=== PATIENT | male | born 1940 | race African-American/Black ===

== ENCOUNTER 2019-08-12 03:27 | Emergency (ER) | payer OTHER, BC ==
[~2019-08-12] VITALS: Ht 185.4 cm; Wt 119.3 kg
[~2019-08-12 03:27] MED LIST: ACETAMINOPHEN SUPP; ACETAMINOPHEN325 M1 PO; ACTOS15 MG PO; ADVAIR HFA 230M12 GM INH; ALEVE220 M1 PO; AMARYL2 MG PO; AMBIEN 5 MG TABL5 M1 PO; ARTIFICIAL TEAR15 M1 OP; ASPIRIN325 PO; ATIVAN1 MG PO; BETIMOL10 ML; BUMETANIDE 0.50.5 M1 PO; BUMETANIDE0.25 MG/1 PO; CARISOPRODOL350 MG PO; CENTRUM SILVER1 EAC4 PO; CEPACOL SORE T1 EAC8 PO; CINNAMON500 MG PO; COLACE 100 MG100 MG PO; COZAAR100 MG PO; EFFIENT10 MG PO; ENOXAPARIN30 MG/0.1 SUBQ; ENOXAPARIN40 MG/0.4 SQ; FISH OIL 1,0001 EAC5 PO; FLEET ENEMA118 ML RE; FLOMAX0.4 MG PO; FLONASE 0.05%50 MCG NASAL; HUMULINR100; HYDROCODON-ACE1 EACH PO; HYDROCODONE-AP1 EAC6 PO; HYTRIN 2MG CAPSU2 M1 PO; HYTRIN PO; IRON325 PO; LIDODERM TOP; LIPITOR10 MG PO; LOPRESSOR100 M1 PO; MAALOX525 MG/15 PO; MAG-AL PLUS SUS30 ML PO; METAXALONE800 MG PO; MIRALAX17 GM PO; MOM PO; MULTIVITAMINS PO; MYLANTA GAS MA125 MG; NEURONTIN 300300 M1 PO; NEURONTIN600 MG PO; NEURX-TF PO; NICOTINE TRANSD21 M1 TOP; NITROGLYCERIN0.4 MG SL; NORFLEX100 MG PO; NOVOLOG100 UNIT/1 SUBQ; OCEAN45 ML NS; OXYCODON-ACETA1 EAC1 PO; PIOGLITAZONE15 MG PO; PROAIR HFA8.5 GM INH; ROBITUSSIN100 MG/53 PO; SENOKOT-S1 TA1 PO; SORE THROAT LO1 EAC2 PO; TIMOPTIC 0.25%1 EACH OPHTHALMIC; TOPROL XL50 MG PO; TUMS CHEWA500 MG/11 PO; TUMS PO; TYLENOL325 MG PO; VASELINE TOP; VENTOLIN HFA 1818 GM INH; VITAMIN D1000 UNI1 PO; VITAMINC500 PO; WELLBUTRIN SR150 MG PO; XALATAN2.5 ML OP; ZOCOR 20 MG TAB20 M1 PO; [UNRECOGNIZED DRUG - OTHER] MM
[2019-08-12 03:35] VITALS: BP 160/73
== END 2019-08-12 04:26 | disposition home or self-care (01) ==
LOC: ER 03:27
DX: R04.0 Epistaxis (principal); I10 Essential (primary) hypertension; E78.5 Hyperlipidemia, unspecified; E11.40 Type 2 diabetes mellitus with diabetic neuropathy, unspecified; F32.9 Major depressive disorder, single episode, unspecified; F41.9 Anxiety disorder, unspecified; Z96.653 Presence of artificial knee joint, bilateral; M19.90 Unspecified osteoarthritis, unspecified site; Z95.2 Presence of prosthetic heart valve; Z79.4 Long term (current) use of insulin; Z87.891 Personal history of nicotine dependence

== ENCOUNTER 2020-05-16 12:08 | Inpatient (IN) | payer OTHER, BC ==
[~2020-05-16] VITALS: Ht 182.9 cm; Wt 137.6 kg
[~2020-05-16 12:08] MED LIST changes: -AMARYL4 MG PO; -BAYER CHEWABLE81 MG PO; -CLARITIN10 MG PO; -NITRO-DUR 0.1M0.1 M1 TRANSDERM; -NORCO 7.5-3251 EACH PO; -NORVASC5 M1 PO; -OMEPRAZOLE 20 M20 M1 PO; -PATADAY5 ML OPHTHALMIC; -PLAVIX 75 MG TA75 M1 PO; -ZANAFLEX4 M1 PO; -ZESTRIL10 MG PO; -ZOCOR20 MG PO
[2020-05-16 12:11] VITALS: BP 121/60
[2020-05-16 14:56] LABS: ABSOLUTE NEUTROPHILS 6.3 thou/uL (1.4-8.2); BASOPHILS 0.4 % (0.0-2.0); EOSINOPHILS 1.4 % (0.0-3.0); HEMATOCRIT 33.9 % (42.0-52.0); HEMOGLOBIN 11.3 gm/dL (14.0-18.0); LYMPHOCYTES 14.6 % (24.0-44.0); MCH 29.4 pg (26.0-34.0); MCHC 33.4 g/dL (28.0-37.0); MCV 87.9 fL (80.0-100.0); MONOCYTES 11.5 % (1.0-8.0); PLATELET COUNT 216 thou/uL (150-400); POLYS 72.1 % (36.0-66.0); RBC 3.85 mil/uL (4.50-6.00); RDW 12.9 % (10.5-14.5); WBC 8.7 thou/uL (4.0-11.0)
[2020-05-16 15:04] LABS: CALCIUM 9.1 mg/dL (8.5-10.1); CREATININE 2.2 mg/dL (0.7-1.3); POTASSIUM 4.6 mmol/L (3.5-5.1)
[2020-05-16 15:10] LABS: ALBUMIN 3.6 g/dL (3.4-5.0); TOTAL BILIRUBIN 0.4 mg/dL (0.2-1.0); TOTAL PROTEIN 7.7 g/dL (6.4-8.2)
[2020-05-16 15:25] VITALS: BP 124/62
[2020-05-16] MEDS ORDERED: HYTRIN 2MG CAPSU2 M1 PO (15:41)
[2020-05-16] MEDS ORDERED: AMARYL4 MG PO (15:44)
[2020-05-16] MEDS ORDERED: ZOCOR20 MG PO (15:45)
[2020-05-16] MEDS ORDERED: ZESTRIL10 MG PO (15:46)
[2020-05-16] MEDS ORDERED: NORVASC5 M1 PO (15:48)
[2020-05-16] MEDS ORDERED: PATADAY5 ML OPHTHALMIC (15:49)
[2020-05-16] MEDS ORDERED: OMEPRAZOLE 20 M20 M1 PO (15:51)
[2020-05-16] MEDS ORDERED: ZANAFLEX4 M1 PO (15:52)
[2020-05-16 16:39] VITALS: BP 119/58
[2020-05-16 16:48] VITALS: BP 91/70
[2020-05-16 19:54] VITALS: BP 143/67
--- NOTE | 2020-05-16 20:21 | NUR ---
Admitted from ER due to non healing wound at L foot, transferred to bed safely. A+Ox4. On room air. Vital signs stable. On carb controlled diet- tolerating well; no nausea, no vomiting and no abdominal pain. Admission history, assessment and education done; forms signed. Continent of bowel and bladder- able to use urinal and go to the toilet with standby assist, gait belt and walker. Falls bundle in place. With SL at AC- on IV antibiotics. With consult to Dr Salinas and Dr Martel- US called in consult; pt seen by Dr Salinas this afternoon- to do wound cultures- speciment obtained and sent; Collette(Wound MANAGER BUDGET)- to do wet to dry dressing, obtain cultures and will see pt tomorrow. Pt for MRI- checklist completed and faxed. Wound photo taken and dressing changed- charted. Medication reconcilation done at ER, Dr Morris informed to review medications to continue.
--- NOTE | 2020-05-17 03:39 | NUR ---
ASSUMED CARE OF PT AT 1900HRS. PT AOX4 AND LETS NEEDS BE KNOWN. FALL PRECAUTION IN PLACE. PT REPORTED SOME PAIN BUT DID NOT REQUEST PAIN MEDS. ABX TREATMENT CONTINUED. PT WAS ABLE TO GET COMFORTABLE AND SLEEP PART OF THE SHIFT. VSS AND NO S/S OF ACUTE DISTRESS. EILL CONTINUE TO MONITOR.
[2020-05-17 03:46] VITALS: BP 134/62
[2020-05-17 06:13] LABS: HEMATOCRIT 31.8 % (42.0-52.0); HEMOGLOBIN 10.6 gm/dL (14.0-18.0); MCH 29.7 pg (26.0-34.0); MCHC 33.4 g/dL (28.0-37.0); MCV 88.9 fL (80.0-100.0); PLATELET COUNT 195 thou/uL (150-400); RBC 3.58 mil/uL (4.50-6.00); RDW 12.9 % (10.5-14.5); WBC 8.3 thou/uL (4.0-11.0)
[2020-05-17 06:30] LABS: CALCIUM 8.7 mg/dL (8.5-10.1); CREATININE 2.4 mg/dL (0.7-1.3); POTASSIUM 4.9 mmol/L (3.5-5.1)
[2020-05-17 07:31] LABS: ABSOLUTE NEUTROPHILS 5.3 thou/uL (1.4-8.2); PLATELET ESTIMATE NORMAL
[2020-05-17 09:01] VITALS: BP 145/71
[2020-05-17 11:02] LABS: URINE POTASSIUM-RANDOM* 64.6 mmol/L
--- NOTE | 2020-05-17 13:22 | NUR ---
PT ADMITTED RELATED TO NON-HEALING FOOT WOUND. CM REVIEWED CHART AND SPOKE WITH CARE TEAM. CM CALLED AND SPOKE WITH PT AT BEDSIDE THIS DAY. PT APPEARED TO BE A&O X4. CM ROLE INTRODUCED. PT INDICATED HE LIVES ALONE IN A TOWNHOUSE WITH A STAIR LIFT. PT INDICATED HE HAS A FWW AND A 4WW FOR HOME USE. PT INDICATED HE HAD BEEN INDEPENDENT WITH ADLS COLORING CHECKER. PT INDICATED HE HAD BEEN SENT IN BY ROLLER MAN DR. ALEXIS AT [address]. PT INDICATED HE HAD HH A WHILE AGO BUT COULDN'T RECALL PROVIDER. PT INDICATED HE PLANS TO RETURN HOME ONCE MEDICALLY STABLE. CM TO FOLLOW INDICATED WITH DC PLANNING.
--- NOTE | 2020-05-17 15:37 | NUR ---
Assumed pt care at 7am.Pt in bed resting without c/o.Assessment completed. Dr Hughes and Grady here,order noted.Pt tolerated meds and diet.Mri of left foot postponed till tomorrow am. Pain shot given as ordered later this afternoon with relief.Will continue to monitor.
[2020-05-17 18:38] VITALS: BP 139/73
[2020-05-17 20:08] VITALS: BP 100/32
--- NOTE | 2020-05-18 04:41 | NUR ---
ASSUMED CARE OF PT AT 1900HRS. PT AOX4 AND LETS NEEDS BE KNOWN. FALL PRECAUTION IN PLACE. PT REPORTED SOME PAIN AND WAS TREATED WITH PRN PAIN MEDS. PT DENIED NAUSEA OR SOA. ASSESSMENT CHARTED. PT WAS ABLE TO GET COMFORTABLE AND SLEEP PART OF THE SHIFT. VSS AND NO S/S OF ACUTE DISTRES. WILL CONTINUE TO MONITOR.
[2020-05-18 05:47] VITALS: BP 129/56
[2020-05-18 08:40] LABS: ALBUMIN 3.1 g/dL (3.4-5.0); CALCIUM 8.4 mg/dL (8.5-10.1); CREATININE 2.6 mg/dL (0.7-1.3); PHOSPHORUS 3.9 mg/dL (2.5-4.9); POTASSIUM 4.7 mmol/L (3.5-5.1)
[2020-05-18 11:49] LABS: URINE BILIRUBIN NEGATIVE (Negative); URINE BLOOD NEGATIVE (Negative); URINE CLARITY CLEAR; URINE COLOR YELLOW; URINE GLUCOSE-RANDOM* NEGATIVE (Negative); URINE KETONES NEGATIVE (Negative); URINE LEUKOCYTES NEGATIVE (Negative); URINE NITRITE NEGATIVE (Negative); URINE PROTEIN (DIPSTICK) NEGATIVE (Negative); URINE UROBILINOGEN 0.2 E.U./dl (0.2-1.0)
[2020-05-18 11:50] LABS: URINE CREATININE-RANDOM* 182.7 mg/dL
--- NOTE | 2020-05-18 11:57 | NUR ---
CARE TEAM INDICATED THAT THEY AREN'T PROCEDING WITH ANGIOGRAM RELATED TO CONCERS FOR ESRD. WC HAD SPOKEN WITH PT REGARDING POSSIBLE AMPUTATION. IT IS ALSO ANTICIPATED THAT PT MAY REQUIRE PROLONGED IV ABX. CM FOLLOWING REGARDING DISHCARGE PLANNING.
--- NOTE | 2020-05-18 13:21 | NUR ---
Received awake on bed. Due medications given as prescribed, able to swallow meds w/o difficulty. On room air. Vital signs stable. A+Ox4. On carb controlled diet- tolerating well; no nausea, no vomiting and no abdominal pain noted. On blood sugar monitoring- taken and recorded accordingly, with sliding scale insulin ordered. Continent of bowel and bladder- able to use the urinal and bedside commode. With SL at R AC, NS at 80cc/hr, infusing well at L FA; on IV antibiotics. MRI of L foot done this am, brought down via wheelchair; transferred to bed safely. Assisted in ADLs. Falls bundle in place. With wound at L foot- dressing C/D/I- photo to be taken, dressing to be changed. Pt seen by Dr Crum this AM, US renal ordered- a/w US staff. Bladder scan done- 102mls, to do straight cath if retaining more than 400mls. Pt seen by wound team as well- possibility of having an amputation- pt very tearful, requested to talk to spiritual care- US called and left message- talked to patient. Complaining of constipation, due laxatives given as prescribed. A/w urine sample for urinalysis-specimen obtained and sent to lab. To continue monitoring patient.
[2020-05-18 15:10] VITALS: BP 123/69
[2020-05-18 19:40] VITALS: BP 142/60
[2020-05-19 03:10] VITALS: BP 119/60
--- NOTE | 2020-05-19 03:16 | NUR ---
PATIENT HAS A LEFT FOOT DRESSING C/D/I. PATIENT HAD 4 BOWEL MOVEMENT THIS SHIFT. PATIENT DENIED PAIN OR DISCOMFORT. FALL PRECAUTION INPLACE. PATIENT IN BED ASLEEP AT THIS TIME BREATHING REGULAR AND UNLABOURED.
[2020-05-19 06:05] LABS: ALBUMIN 2.8 g/dL (3.4-5.0); CALCIUM 8.1 mg/dL (8.5-10.1); CREATININE 2.6 mg/dL (0.7-1.3); PHOSPHORUS 3.4 mg/dL (2.5-4.9); POTASSIUM 4.7 mmol/L (3.5-5.1)
[2020-05-19 07:39] VITALS: BP 137/57
--- NOTE | 2020-05-19 14:48 | NUR ---
CARE TEAM INDIATED THAT THEY WERE GOING TO CONSULT ORTHO TO DISCUSS POSSIBLE AMPUTATION. CM TO FOLLOW INDICATED WITH DC PLANNING.
[2020-05-19 16:05] VITALS: BP 123/48
--- NOTE | 2020-05-19 18:30 | NUR ---
PT IS AOX4, VSS, WOUND CARE COMPLETED BY WC TEAM. PT PAIN CONTROLLED WITH ORAL ANALGESIC. CALL APPROPRIATELY, IV PATENT WITH ANTIBIOTIC THERAPY. WILL CONTINUE TO MONITOR.
[2020-05-19 19:45] VITALS: BP 134/51
--- NOTE | 2020-05-20 02:12 | NUR ---
PATIENT LEFT FOOT DRESSING IS C/D/I.PATIENT HAD A BOWEL MOVEMENT X1 THIS SHIFT. PATIENT DENIED PAIN OR DISCOMFORT. FALL PRECAUTION IN PLACE CALL LIGHT AND PERSONAL ITEM WITHIN REACH.PATIENT IN BED ASLEEP AT THIS TIME BREATHING REGULAR AND UNLABOURED.
[2020-05-20 05:47] LABS: ALBUMIN 2.7 g/dL (3.4-5.0); CREATININE 2.3 mg/dL (0.7-1.3); PHOSPHORUS 3.5 mg/dL (2.5-4.9); POTASSIUM 4.7 mmol/L (3.5-5.1)
[2020-05-20 05:56] VITALS: BP 129/96
--- NOTE | 2020-05-20 13:39 | NUR ---
CARE TEAM INDICATED THAT DC IS NOT ANTICIPATED OVER THE WEEKEND. WAITING FOR RENAL FUNCTION TO IMPROVE PRIOR TO GOING FOR ARTERIOGRAM PRIOR TO POSSIBLE SURGICAL INTERVETNION. CM TO FOLLOW INDICATED WITH DC PLANNING.
--- NOTE | 2020-05-20 15:17 | HC ---
[facility] [place] [address] CONSULTATION Name: ELIEZER ORDAZ Room #: 456-P ADM IN M.R.#: [id number] Admission: 05/16/20 Attend Phys: Mago Morris MD Discharge: Date of : 41 Report #: [id number] THIS REPORT FOR: cc: Jhonathan Nelson,Rene Kurtz MD ~ CC: Mago Nelson REASON FOR CONSULTATION: Elevated creatinine. REASON FOR PRESENTATION: Wounds on his lower extremities. HISTORY OF PRESENT ILLNESS: This is a 79-year-old with past history of diabetes mellitus, hypertension and chronic kidney disease. He sees Dr. Rushing, Nephrology. He has been seeing his neuro urologist who referred him to the wound clinic because of worsening nonhealing ulcers. The patient will be ruled out for osteomyelitis. He reported that his pain, wound had been progressively worsening. He had these issues with his lower extremity for some years now. On presentation, the patient's creatinine was elevated at 2.2 and had risen to 2.6. The patient is known to have chronic kidney disease and urinary retention in the past. He was evaluated by one of my associates' back in 2015 when his creatinine value was used to be in the 2.0. The patient's chronic kidney disease was attributed to long-standing diabetes mellitus, hypertension and nonsteroidal anti-inflammatory medications. Currently, he has no active symptoms to report to me. PAST MEDICAL HISTORY: 1. Diabetes mellitus. 2. Hypertension. 3. Paroxysmal supraventricular tachycardia. 4. Peripheral vascular disease. 5. Chronic kidney disease with a baseline creatinine of around 2.0. 6. Left total knee replacement. 7. Lumbar surgery. 8. Peripheral neuropathy. 9. Hyperlipidemia. 10. Coronary artery disease. MEDICATIONS: 1. Albuterol. 2. Amlodipine. 3. Aspirin. 4. Gabapentin. 5. Lisinopril. 6. Glimepiride. 7. Zanaflex. [address] [address] CONSULTATION Name: ELIEZER ORDAZ Room #: 456-P [facility] IN ..#: [id number] Admission: 05/16/20 Attend Phys: Mago Morris MD Discharge: Date of : 41 Report #: [id number] 8. Omeprazole. FAMILY HISTORY: Significant for hypertension. SOCIAL HISTORY: He denies drug or alcohol abuse. ALLERGIES: None. REVIEW OF SYSTEMS: GENERAL: Significant for occasional weakness. CARDIOVASCULAR: No chest pain or palpitation. PULMONARY: No cough or hemoptysis. GASTROINTESTINAL: No nausea or vomiting. GENITOURINARY: No frequency, no urgency. Denies difficulty emptying his bladder. MUSCULOSKELETAL: As per the history of present illness. PHYSICAL EXAMINATION: VITAL SIGNS: Blood pressure is 129/56, temperature is 37.1. HEAD AND NECK: No jugular venous distention. CHEST: No crackles. CARDIOVASCULAR: No rub. ABDOMEN: Soft, nontender. EXTREMITIES: Lower extremities, no edema. Dressing applied over his left foot ulcer. ASSESSMENT AND PLAN: 1. Chronic kidney disease. 2. Peripheral vascular disease. 3. Diabetes mellitus. 4. Hypertension. 5. Ongoing lower extremities wound. 6. The patient has chronic kidney disease with recent worsening, which is not explainable; however, he did have some issues with urinary retention in the past. I will obtain an acute kidney injury workup appropriately on the patient. 7. With his worsening creatinine, I would not recommend to proceed with the angiogram. 8. Hold all diuretics at this point. 9. Hold angiotensin converting enzyme inhibitor. 10. ID is following regarding his potential osteomyelitis. 11. Risk of contrast-induced nephropathy was discussed with the patient and he wants me to discuss issues with his brother. 12. Daily electrolytes. [address] [address] CONSULTATION Name: ELIEZER ORDAZ Room #: 456-P [facility] IN M.R.#: [id number] Admission: 05/16/20 Attend Phys: Mago Morris MD Discharge: Date of : 41 Report #: [id number] 13. Watch urine output. 14. Continue with the IV fluid for now. <ELECTRONICALLY SIGNED> By: Rene Loera MD 05/20/20 1517 [id number] Rene Loera MD /nt
[2020-05-20 18:50] VITALS: BP 123/89
--- NOTE | 2020-05-20 20:11 | NUR ---
Assumed pt care this am, VS stable. several bm done through out he day. Fall precautions in place, uses the urinal and the commode. Bladder scan done at 8:35 am at 100 cc then 2:35 pm at 115 cc. Pt has been voiding. POC followed with no signs or verbalizations of distress noted. Endorsed to the night nurse.
[2020-05-21 04:10] VITALS: BP 145/73
--- NOTE | 2020-05-21 05:09 | NUR ---
Pt. rested quietly at short intervals during the night when checked on during frequent rounds. He c/o indigestion and sinus congestion. Arlet READ called and notified earlier during the shift (see new orders). He offers no c/o pain. Dressing to left foot is dry and intact.
[2020-05-21 08:06] VITALS: BP 137/46
[2020-05-21 08:13] LABS: ALBUMIN 2.7 g/dL (3.4-5.0); CALCIUM 8.7 mg/dL (8.5-10.1); CREATININE 2.1 mg/dL (0.7-1.3); PHOSPHORUS 3.2 mg/dL (2.5-4.9); POTASSIUM 4.6 mmol/L (3.5-5.1)
[2020-05-21 15:26] VITALS: BP 139/88
[2020-05-21 20:27] VITALS: BP 144/64
--- NOTE | 2020-05-21 20:42 | NUR ---
ASSUMED PT CARE AT 0700. PT A X O X 4. WOUND DRESSING CHANGED. PATIENT HAD CONCERNS THAT HIS BLOOD SUGAR MEDICATION AND BP MEDICATION TAKING AT HOME IS NOT BEING GIVEN NOW. TOLD PT IT IS ONHOLD, BUT PT SAID HE NEED TO TALK TO DOCTOR REGARDING THAT. WAS PAGED AND AIREMAILED, DIDNT GET BACK DURING THE SHIFT. PT WILL CALL FOR HELP. SHIFT REPORT GIVEN TO LOCK OPERATOR.
--- NOTE | 2020-05-22 03:42 | NUR ---
PATIENT ALERT AND ORIENTED X4. UP TO SIDE OF BED USING URINAL WITH YELLOW URINE. VERY FUSSY AT SHIFT CHANGE AND DURING STAIN DIPPER DUE TO HIS MEDICATIONS. BS MONITORED PER ORDER. DRESSING TO LEFT FOOT DRY AND INTACT. IVF INFUSING W/O COMPLICATION. SLEEPING OFF AND ON DURING THE NIGHT. DENIES PAIN.
[2020-05-22 05:02] VITALS: BP 142/60
[2020-05-22 06:13] LABS: ALBUMIN 2.7 g/dL (3.4-5.0); CALCIUM 9.1 mg/dL (8.5-10.1); CREATININE 1.9 mg/dL (0.7-1.3); PHOSPHORUS 3.7 mg/dL (2.5-4.9)
[2020-05-22 06:17] LABS: POTASSIUM 5.5 mmol/L (3.5-5.1)
[2020-05-22 07:30] VITALS: BP 143/56
[2020-05-22 15:25] VITALS: BP 158/75
--- NOTE | 2020-05-22 16:49 | NUR ---
PT AOX4, VSS, R AC IV IS PATENT WITH FLUIDS RUNNING. PT IS TOLERATING DIET, USES URINAL AND BSC. LEFT FOOT DRESSING IS CDI, ELEVATED ON PILLOWS. PT RECEIVED KAYEXALATE X1 FOR ELEVATED POTASSIUM LEVEL 5.5. BS WERE MONITORED, PT CALLS APPROP. WILL BE NPO AT MIDNIGHT FOR PROCEDURE TOMORROW. NO DISTRESS NOTED, WILL CONTINUE TO MONITOR.
[2020-05-22 20:13] VITALS: BP 153/76
[2020-05-23] VITALS (9 sets, daily range): BP systolic 132–153; BP diastolic 53–76
--- NOTE | 2020-05-23 03:37 | NUR ---
ASSUMED CARE OF PT AT 1900HRS. PT AOX4 AND LETS NEEDS BE KNOWN. FALL PRECAUTION IN PLACE. ABX TREATMENT CONTINUED. ASSESSMENT CHARTED. PT PLACED NPO AT OR FOR PROCEDURE IN THE AM. PT WAS ABLE TO GET COMFORTABLE AND SLEEP PART OF THE SHIFT. VSS AND NO S/S OF ACUTE DISTRESS. WILL CONTINUE TO MONITOR.
[2020-05-23 06:30] LABS: ALBUMIN 2.5 g/dL (3.4-5.0); CALCIUM 8.7 mg/dL (8.5-10.1); CREATININE 1.9 mg/dL (0.7-1.3); PHOSPHORUS 3.4 mg/dL (2.5-4.9); POTASSIUM 4.7 mmol/L (3.5-5.1)
--- NOTE | 2020-05-23 08:10 | HC ---
[facility] [place] [address] CONSULTATION Name: ELIEZER ORDAZ Room #: 456-P ADM IN M.R.#: [id number] Admission: 05/16/20 Attend Phys: Mago Morris MD Discharge: Date of : 41 Report #: [id number] THIS REPORT FOR: cc: Jhonathan Nelson,Quang Voss MD ~ CC: Mago Nelson MD DATE OF SERVICE: 05/17/2020 CHIEF COMPLAINT: Diabetic foot ulceration, left foot. HISTORY OF PRESENT ILLNESS: This is a 79-year-old male patient who was referred to me for a diabetic foot ulceration by Dr. Jhonathan Nelson. I saw him yesterday in the clinic. He had significant odor, drainage and necrosis of the lateral aspect of his left foot. It felt that he had significant surrounding cellulitis and viability of his lower extremity was at risk and he is admitted to the hospital. The patient denies problems with his foot in the past. He was seen over the last several weeks by a local court transcriber, some debridement was performed, he was unaware of his vascular status. PAST MEDICAL HISTORY: Positive for a history of ischemic cardiomyopathy, type 2 diabetes mellitus, hypertension, chronic kidney disease stage 3, coronary artery disease, status post stent placement, history of PSVT with ablation, peripheral neuropathy and ischemic cardiomyopathy. He has had previous back surgery. FAMILY HISTORY: Positive for cancer in his father. His mother of a myocardial infarction aged in her 90s. SOCIAL HISTORY: The patient admits to prior tobacco use, quit 3 years ago. No alcohol or drug use. ALLERGIES: None. MEDICATIONS: Include Flomax, iron, Flonase, ProAir, Cepacol, Tylenol, Ventolin, Mag-Al Plus, Colace, gabapentin, bumetanide, glimepiride, simvastatin, lisinopril, amlodipine, olopatadine, omeprazole, Zanaflex, cinnamon bark, bupropion. REVIEW OF SYSTEMS: CONSTITUTIONAL: The patient denies fever, chills or weight loss. NEUROLOGICAL: The patient has peripheral neuropathy. Denies other focal weakness, numbness or tingling. EYES: The patient denies visual changes, redness, or drainage. [address] [address] CONSULTATION Name: SUSHMAYECENIAELÍASKyle Kapoor Room #: 456-P [facility].#: [id number] Admission: 05/16/20 Attend Phys: Mago Morris MD Discharge: Date of : 41 Report #: [id number] ENT: The patient denies earache, nasal drainage, sore throat. CARDIOVASCULAR: The patient denies chest pain, palpitations or diaphoresis. PULMONARY: As described above. GASTROINTESTINAL: The patient denies nausea, vomiting, diarrhea, abdominal pain. ORTHOPEDIC: The patient denies pain, swelling, drainage from his left foot. Other systems in a 14-point review of systems are negative. PHYSICAL EXAMINATION: VITAL SIGNS: Include temperature 98.4, pulse 83, respiratory rate 18, blood pressure 145/71. GENERAL: This is a somewhat chronically ill-appearing male patient who appears to be in no distress. HEENT: Head, normocephalic. Nose and throat clear. NECK: Supple. LUNGS: Clear. ABDOMEN: Soft. Bowel sounds present. EXTREMITIES: Lower extremities demonstrate nonpalpable distal pulses. He has moderate erythema and swelling involving the left foot. He has a necrotic ulceration with odor and drainage at the fifth MTP of the left foot, it is mildly tender to palpation. NEUROLOGIC: The patient is alert and oriented and appropriate. LABORATORY STUDIES: Include white blood cell count of 8.3 with a hemoglobin of 10.6. Sodium 138, potassium 4.7, chloride 107, BUN 11, creatinine 2.3, glucose 125. CRP is elevated at 88.7. Albumin is 2.7. CLINICAL IMPRESSION: 1. Diabetic foot ulcer with significant infection and cellulitis of the left fifth MTP. 2. Osteomyelitis, on plain film x-ray. 3. Peripheral vascular disease. 4. Renal insufficiency. 5. Type 2 diabetes mellitus with hyperglycemia. RECOMMENDATIONS: At this point in time, the patient will be started on intravenous antibiotic therapy. We will check an MRI. He will likely require a ray amputation on the left side. We need to evaluate his vascular status to see if he has adequate vascularity to heal. We will obtain renal consultation. He will need nutritional support to maximize wound healing and glycemic control. I appreciate being asked to see him in consultation. <ELECTRONICALLY SIGNED> By: Quang Martel MD 05/23/20 0810 [id number] Quang Martel MD /nt
--- NOTE | 2020-05-23 12:56 | NUR ---
Assumed patient care at 0715. Vital signs stable, LSCTA, BS x's 4, abdomen is soft and non-tender; he denies pain. Patient has a dressing to his left foot, it is clean and intact. Patient was not given any medications by mouth due to being NPO for procedure. Blood sugar was 231 at 0750; he was given 4 Units of Lispro per sliding dcale. At 1200, blood sugar was 213. Insulin withheld due to NPO status. Patient was taken to procedure at 1205. He is being transferred to CCU, Room 212.
--- NOTE | 2020-05-23 14:36 | NUR ---
PT TO HAVE ANGIOGRAM THIS DAY. CARE TEAM INDIATED THAT PT MAY TRANSFER TO CCU POST PROCEDURE. WC, OTHRO, AND ID FOLLOWING. PHYSICIAN INDICATED PT MAY NEED POST ACUTE CARE STAY UPON DC. CM TO FOLLOW INDICATED WITH DC PLANNING.
--- NOTE | 2020-05-23 21:04 | NUR ---
ASSUMMED PT CARE AT APPROXIMATLEY 1800. PT A&O X4. PT POST CATH PROCEDURE. R GROIN C/D/I. NO HEMATOMA. VITAL SIGNS STABLE. BLOOD SUGAR STABLE. PT COMFORTABLE IN BED. EDUCATED PT ABOUT POC. PT STATED UNDERSTANDING AND DENIED HAVING FURTHER CONCERNS.
[2020-05-24] VITALS: BP 124/64; BP 155/78
[2020-05-24 05:27] VITALS: BP 161/72
[2020-05-24 06:38] LABS: ALBUMIN 2.6 g/dL (3.4-5.0); CALCIUM 8.5 mg/dL (8.5-10.1); CREATININE 1.8 mg/dL (0.7-1.3); PHOSPHORUS 3.9 mg/dL (2.5-4.9); POTASSIUM 4.4 mmol/L (3.5-5.1)
[2020-05-24 07:29] VITALS: BP 146/52
[2020-05-24 11:26] VITALS: BP 159/68
[2020-05-24 15:16] VITALS: BP 164/78
--- NOTE | 2020-05-24 17:16 | NUR ---
ASSUMED CARE PT SHIFT CHANGE. ASSESSMENT CHARTED. VSS. MEDS GIVEN PER JAN. DENIES PAIN. O2 SATS WNL ON ROOM AIR. LEFT FOOT ULCER WOUND CARE ORDERS COMPLETED AND DOCUMENTED. PT SEEN BY ORTHO- TOE AMPUTATION TOMORROW. PT AWARE. PRE PROCEDURAL COVID TEST SENT TO LAB AT APPROX 1545. BLOOD SUGARS MANAGED ADEQUATELY. PT APPETITE ADEQUATE. PT C/O BEING "JITTERY" THIS AM. XANAX ADMINISTERED WITH RELIEF OBTAINED. PT CURRENTLY EATING DINNER COMFORTABLY IN BED. DENIES NEEDS. WILL CONT TO MONITOR AND FOLLOW POC.
[2020-05-24 20:00] VITALS: BP 173/71
[2020-05-25 04:00] VITALS: BP 160/75
[2020-05-25 06:01] LABS: HEMATOCRIT 25.9 % (42.0-52.0); HEMOGLOBIN 8.6 gm/dL (14.0-18.0); MCH 29.2 pg (26.0-34.0); MCHC 33.2 g/dL (28.0-37.0); MCV 87.7 fL (80.0-100.0); PLATELET COUNT 264 thou/uL (150-400); RBC 2.95 mil/uL (4.50-6.00); RDW 13.1 % (10.5-14.5); WBC 9.4 thou/uL (4.0-11.0)
[2020-05-25 06:39] LABS: ALBUMIN 2.4 g/dL (3.4-5.0); CALCIUM 8.6 mg/dL (8.5-10.1); CREATININE 1.7 mg/dL (0.7-1.3); PHOSPHORUS 3.8 mg/dL (2.5-4.9); POTASSIUM 4.3 mmol/L (3.5-5.1)
[2020-05-25 08:00] VITALS: BP 166/63
--- NOTE | 2020-05-25 12:36 | NUR ---
ATTEMPTED TO SEE Pt FOR P.T. EVALUATION. Pt OFF OF THE UNIT FOR SURGERY. REQUEST NEW POST OP P.T. ORDERS WITH ANY WB RESTRICTIONS/LIMITATIONS.
[2020-05-25 12:39] LABS: ABSOLUTE NEUTROPHILS 7.2 thou/uL (1.4-8.2); PLATELET ESTIMATE NORMAL
[2020-05-25 13:15] VITALS: BP 156/79
[2020-05-25 16:00] VITALS: BP 144/77
--- NOTE | 2020-05-25 17:43 | NUR ---
ASSESSMENT DOCUMENTED. VSS. PT OFF UNIT FOR MAJORITY OF SHIFT FOR SURGERY. PT RESTING IN BED WITH CALL LIGHT IN REACH. WILL CONTINUE TO MONITOR.
[2020-05-25 18:40] VITALS: BP 165/77
[2020-05-25 19:00] VITALS: BP 165/77
--- NOTE | 2020-05-25 20:48 | NUR ---
Pt arrived in the unit at 1835 via bed from 2M. Transferred to the room safely. Report from CCU nurse received by day 4W charge nurse. Report given to overnight cashier nurse.
[2020-05-26 00:44] VITALS: BP 143/67
--- NOTE | 2020-05-26 04:05 | NUR ---
PAIN CONTROLLED THIS SHIFT. PATIENT LEFT FOOT CASTILLO WRAP IS C/D/I. FALL PRECAUTION IN PLACE. CALL LIGHT AND PERSONAL ITEM WITHIN REACH.PATIENT IN BED ASLEEP AT THIS TIME BREATHING REGULAR AND UNLABOURED.
[2020-05-26 04:50] VITALS: BP 153/68
[2020-05-26 08:33] LABS: ALBUMIN 2.6 g/dL (3.4-5.0); CALCIUM 8.8 mg/dL (8.5-10.1); CREATININE 1.7 mg/dL (0.7-1.3); PHOSPHORUS 3.8 mg/dL (2.5-4.9); POTASSIUM 4.7 mmol/L (3.5-5.1)
[2020-05-26 08:54] VITALS: BP 138/72
--- NOTE | 2020-05-26 14:06 | O ---
[facility] [place] [address] OPERATIVE REPORT Name: ELIEZER ORDAZ Room #: 460-P ADM IN M.R.#: [id number] Admission: 05/16/20 Attend Phys: Mago Morris MD Discharge: Date of : 41 Report #: [id number] THIS REPORT FOR: cc: Jhonathan Nelson,Aguila Pink MD ~ CC: Mago Nelson DATE OF SERVICE: 05/25/2020 SURGEON: Aguila Dimas MD FURNITURE AND BEDDING INSPECTOR: Joanne Dang NP SERVICE: Orthopedics. FACILITY: [facility]. PREOPERATIVE DIAGNOSES: 1. Osteomyelitis of the left fifth toe proximal phalanx and metatarsal head. 2. Uncontrolled diabetes. 3. Chronic kidney disease. 4. Peripheral arterial disease. POSTOPERATIVE DIAGNOSES: 1. Osteomyelitis of the left fifth toe proximal phalanx and metatarsal head. 2. Uncontrolled diabetes. 3. Chronic kidney disease. 4. Peripheral arterial disease. PROCEDURE: Left fifth ray amputation. COMPLICATIONS: None. DRAINS: None. SPECIMENS: Toe. FINDINGS: Overall good blood supply at the skin. HISTORY: The patient is a 79-year-old gentleman with history of diabetes and diabetic foot wound on the left foot. He had had conservative treatment with wound care, antibiotics, etc., but had failed this treatment. He had osteomyelitis and was indicated for surgical treatment. We had multiple decisions preoperatively both with the Orthopedic service as well as the [facility] [address] [place] [address] OPERATIVE REPORT Name: ELIEZER ORDAZ Antwon Room #: 460-P ADM IN M.R.#: [id number] Admission: 05/16/20 Attend Phys: Mago Morris MD Discharge: Date of : 41 Report #: [id number] admitting Internal Medicine Service. We postponed his surgery until after he had an angiogram performed and during that procedure they were able to restore blood flow to 1 vessel and we felt he had reasonable chance at healing a metatarsal amputation. Given that plan, he was in favor of the ray amputation. He has declined any further procedure and we felt this was the best chance to rid the infection and help him with his recovery. Risks, benefits, alternatives, and indication of surgery discussed with him in detail. Risks include but not limited to pain, bleeding, infection, injury to nerves or blood vessels, need for further surgery including higher level amputation as well as complications related to anesthesia up to and including . Despite these risks, he wished to proceed. PROCEDURE IN DETAIL: After left lower extremity was correctly identified in the preoperative holding as operative extremity, the patient was taken to the operating room where general anesthesia with LMA was induced without complication. He was padded appropriately. Prophylactic antibiotics were administered at appropriate time. No tourniquet was used. The left leg was then prepped and draped in standard sterile fashion. Time-out procedure was performed. A tennis racquet shaped incision was made around the fifth toe. We dissected down full thickness and resected the toe exposing the metatarsal head which had obvious osteomyelitis, but the soft tissues and the surrounding area really looked clean overall. The dissection was taken down to the very proximal aspect of the fifth metatarsal in a subperiosteal fashion and then we transected the metatarsal and discarded the metatarsal. The wound was irrigated and then I exposed just slight more of the metatarsal, resected that and then contoured it to smooth surface. I then proceeded with soft tissue debridement up to the level of the fourth metatarsal periosteum. Hemostasis was achieved. The wound was copiously irrigated again and then we debulked the plantar side in order to advance the tissues. The deep layer was closed with #1 PDS in interrupted fashion and good apposition was achieved and then we closed the next layer with 0 PDS which provided a low tension soft tissue closure. Skin was closed with 2-0 nylon in mattress suture fashion with some simples applied as well. Sterile dressing was applied. The patient was awakened from anesthesia and taken to recovery room in stable condition. There were no complications and all counts were recorded as correct. <ELECTRONICALLY SIGNED> By: Aguila Dimas MD 05/26/20 1406 1156 [id number] Aguila Dimas MD /nt
[2020-05-26 15:29] VITALS: BP 135/64
--- NOTE | 2020-05-26 16:49 | NUR ---
PT TO DC TO 5N THIS DAY. PT TO NOTIFY HIS BROTHER. CM TO FOLLOW ON 5N.
[2020-05-26] MEDS ORDERED: PLAVIX 75 MG TA75 M1 PO (16:53)
[2020-05-26] MEDS ORDERED: BAYER CHEWABLE81 MG PO (16:53)
[2020-05-26] MEDS ORDERED: CLARITIN10 MG PO (16:53)
[2020-05-26] MEDS ORDERED: NITRO-DUR 0.1M0.1 M1 TRANSDERM (17:02)
--- NOTE | 2020-05-26 17:07 | PATH ---
[facility] [address] [place] [address] PATHOLOGY RPT PROCEDURE Name: ELIEZER ORDAZ Room #: 460-P ADM IN M.R.#: [id number] Admission: 05/16/20 Date of : 42 Discharge: Report #: [id number] Path Case #: [id number] [facility] Accession Number: [id number] . 01 Material submitted: . foot - LEFT FOOT 5TH RAY AMPUTATION. Modifiers: left, fifth . 01 Clinical history: . Left fifth toe osteomyelitis . 02 Diagnosis: Left foot fifth ray amputation: - Ulceration associated with gangrenous necrosis extending into deep subcutaneous tissue. - Acute inflammation involves underlying bone associated with acute osteomyelitis. - Surgical margin of bone viable. . (IUV:mml; 05/26/2020) QLM 05/26/2020 1414 Local . 02 Electronically signed: . Jazz Mejia MD, Pathologist NPI- [id number] . 01 Gross description: . The specimen is received in formalin, labeled "Eliezer Ordaz, left foot fifth ray amputation". Received is an amputated digit measuring 7.7 x 3.2 x 1.5 cm in greatest dimensions. The bone margin is jagged in appearance. The skin extends 4.1 cm proximal to the bone margin. The bone and soft tissue margins are inked black. The soft tissue margin is pink-le to necrotic in appearance. The nail is present displaying a light le and thickened appearance. On the dorsal/lateral aspect of the specimen, there is a poorly circumscribed, irregular in contour and hoang-brown to brown-like necrotic-appearing lesion measuring 4.2 x 3.0 cm, which grossly approaches the inked margin. The specimen is submitted representatively as follows: . A1 sales representative printing paper section of lesion on lateral aspect of toe A2 longitudinal cross-section of bone margin and adjacent skin lesion, following decalcification. . Also received within the specimen container is an additional segment of bone consistent with metatarsal measuring 4.8 x 2.0 x 1.8 cm in greatest dimensions. Both margins are jagged in appearance. The smaller margin lines up with the distal aspect of the toe. The opposite margin is inked black. A full-thickness longitudinal cross-section is submitted in [address] [address] PATHOLOGY RPT PROCEDURE Name: ELIEZER ORDAZ Room #: 460-P ADM IN M.R.#: [id number] Admission: 05/16/20 Date of : 42 Discharge: Report #: [id number] Path Case #: [id number] cassettes A3 and A4, following decalcification. (CAA; 05/25/2020) QAC/QAC 05/25/2020 1559 Local . 02 Pathologist provided ICD-10: L97.529, I96, M86.172 . 02 CPT . 732875, 217578 Specimen Comment: A courtesy copy of this report has been sent to [phone], [phone] Specimen Comment: [phone], Specimen Comment: Report sent to ,DR HENDRICKSON / DR MCKEON Performed at: [address], [place] [id number] MD Manohar Sidhu MD Phone: [phone] Performed at: [address] [id number] MD Jazz Mejia MD Phone: [phone]
[2020-05-26] MEDS ORDERED: NORCO 7.5-3251 EACH PO (17:13)
--- NOTE | 2020-05-26 18:21 | NUR ---
Assumed pt care at 7am.Pt in bed most of the time today. Repositioned self for comfort.Assessment completed.vss.Pt c/o of left pinky toe rated 8/10.Morphine sulfate ivp given with relief.Dr Rasmussen and Delonte here,order noted.Family here for visit and updates given.Received call from rehab that pt will be dc this evening.Nuria Romero np completed dc order.Report off to Britany gamez. Pt will be transfer at shift change to rehab unit.
== END 2020-05-26 19:03 | DRG 270 ==
LOC: ER 12:08 → EROBS 15:32 → 4W 15:32 → 2N 05-23 14:25 → 4W 05-25 18:46
PROVIDERS: Hospitalist; Nurse Practitioner Family; Orthopaedic Surgery Sports Medicine; ADMIT Internal Medicine; ATTEND Internal Medicine
DX: E11.51 Type 2 diabetes mellitus with diabetic peripheral angiopathy without gangrene (principal); E43 Unspecified severe protein-calorie malnutrition; N17.0 Acute kidney failure with tubular necrosis; L03.116 Cellulitis of left lower limb; M86.8X8 Other osteomyelitis, other site; N18.4 Chronic kidney disease, stage 4 (severe); E11.69 Type 2 diabetes mellitus with other specified complication; E11.42 Type 2 diabetes mellitus with diabetic polyneuropathy; E11.621 Type 2 diabetes mellitus with foot ulcer; L97.529 Non-pressure chronic ulcer of other part of left foot with unspecified severity; I25.5 Ischemic cardiomyopathy; R53.81 Other malaise; E78.5 Hyperlipidemia, unspecified; M19.90 Unspecified osteoarthritis, unspecified site; F32.9 Major depressive disorder, single episode, unspecified; F41.9 Anxiety disorder, unspecified; Z96.653 Presence of artificial knee joint, bilateral; I25.10 Atherosclerotic heart disease of native coronary artery without angina pectoris; E11.22 Type 2 diabetes mellitus with diabetic chronic kidney disease; E11.65 Type 2 diabetes mellitus with hyperglycemia; I70.8 Atherosclerosis of other arteries; E66.01 Morbid (severe) obesity due to excess calories; N40.0 Benign prostatic hyperplasia without lower urinary tract symptoms; G47.00 Insomnia, unspecified; I12.9 Hypertensive chronic kidney disease with stage 1 through stage 4 chronic kidney disease, or unspecified chronic kidney disease; K59.00 Constipation, unspecified; Z20.828 Contact with and (suspected) exposure to other viral communicable diseases; Z95.5 Presence of coronary angioplasty implant and graft; Z87.891 Personal history of nicotine dependence; Z82.49 Family history of ischemic heart disease and other diseases of the circulatory system
CPT/HCPCS: 10040; 10047; 10081; 10194; 50010; 50101; 50386; 56525; 57091; 62110; 62900; 70005

== ENCOUNTER → 2020-05-16 | Outpatient (CLI) | payer OTHER, BC ==
[~2020-05-16] MED LIST changes: +AMARYL4 MG PO; +BAYER CHEWABLE81 MG PO; +CLARITIN10 MG PO; +NITRO-DUR 0.1M0.1 M1 TRANSDERM; +NORCO 7.5-3251 EACH PO; +NORVASC5 M1 PO; +OMEPRAZOLE 20 M20 M1 PO; +PATADAY5 ML OPHTHALMIC; +PLAVIX 75 MG TA75 M1 PO; +ZANAFLEX4 M1 PO; +ZESTRIL10 MG PO; +ZOCOR20 MG PO
== END ==
LOC: HYPER 10:29
PROVIDERS: ATTEND Emergency Medicine Emergency Medical Services
DX: E11.621 Type 2 diabetes mellitus with foot ulcer (principal); L97.522 Non-pressure chronic ulcer of other part of left foot with fat layer exposed; E11.42 Type 2 diabetes mellitus with diabetic polyneuropathy; L84 Corns and callosities; E11.22 Type 2 diabetes mellitus with diabetic chronic kidney disease; N18.3 Chronic kidney disease, stage 3 (moderate); I25.10 Atherosclerotic heart disease of native coronary artery without angina pectoris; E78.5 Hyperlipidemia, unspecified; Z87.891 Personal history of nicotine dependence; Z79.4 Long term (current) use of insulin; Z98.49 Cataract extraction status, unspecified eye; Z90.89 Acquired absence of other organs; Z96.659 Presence of unspecified artificial knee joint; Z79.82 Long term (current) use of aspirin

== ENCOUNTER 2020-05-26 15:38 | Inpatient (IN) | payer OTHER, BC ==
[~2020-05-26] VITALS: Ht 182.9 cm; Wt 128.8 kg
[~2020-05-26 15:38] MED LIST changes: +AMARYL4 MG PO; +NORVASC5 M1 PO; +OMEPRAZOLE 20 M20 M1 PO; +PATADAY5 ML OPHTHALMIC; +ZANAFLEX4 M1 PO; +ZESTRIL10 MG PO; +ZOCOR20 MG PO
[2020-05-26] MEDS ORDERED: BAYER CHEWABLE81 MG PO (16:53)
[2020-05-26] MEDS ORDERED: CLARITIN10 MG PO (16:53)
[2020-05-26] MEDS ORDERED: PLAVIX 75 MG TA75 M1 PO (16:53)
[2020-05-26] MEDS ORDERED: NITRO-DUR 0.1M0.1 M1 TRANSDERM (17:02)
[2020-05-26] MEDS ORDERED: NORCO 7.5-3251 EACH PO (17:13)
[2020-05-26 19:00] VITALS: BP 155/58
[2020-05-27 05:50] LABS: HEMATOCRIT 26.6 % (42.0-52.0); HEMOGLOBIN 8.6 gm/dL (14.0-18.0); MCH 28.7 pg (26.0-34.0); MCHC 32.5 g/dL (28.0-37.0); MCV 88.3 fL (80.0-100.0); RBC 3.01 mil/uL (4.50-6.00); RDW 13.4 % (10.5-14.5); WBC 9.8 thou/uL (4.0-11.0)
[2020-05-27 06:29] LABS: ALBUMIN 2.4 g/dL (3.4-5.0); CALCIUM 8.6 mg/dL (8.5-10.1); CREATININE 1.7 mg/dL (0.7-1.3); PHOSPHORUS 4.1 mg/dL (2.5-4.9); POTASSIUM 4.6 mmol/L (3.5-5.1)
[2020-05-27 07:15] VITALS: BP 170/60
[2020-05-27 20:10] VITALS: BP 168/70
[2020-05-28 06:50] LABS: ALBUMIN 2.4 g/dL (3.4-5.0); CALCIUM 8.7 mg/dL (8.5-10.1); CREATININE 1.6 mg/dL (0.7-1.3); PHOSPHORUS 3.2 mg/dL (2.5-4.9); POTASSIUM 4.9 mmol/L (3.5-5.1)
[2020-05-28 08:07] VITALS: BP 175/85
[2020-05-28 20:00] VITALS: BP 147/73
[2020-05-29 08:05] VITALS: BP 176/98
--- NOTE | 2020-05-29 12:00 | HC ---
[facility] [place] [address] CONSULTATION Name: ELIEZER ORDAZ Room #: 511-P ADM IN M.R.#: [id number] Admission: 05/26/20 Attend Phys: Michael Bowens MD Discharge: Date of : 42 Report #: [id number] THIS REPORT FOR: cc: Jhonathan Nelson,Aneudy Delcid MD ~ CC: Michael Nelson DATE OF SERVICE: 05/28/2020 WOUND CARE CONSULTATION NOTE REASON FOR CONSULTATION: History of diabetic ulcer of left foot with osteomyelitis and cellulitis, 3 days status post left fifth toe ray amputation on 05/25/2020, now in rehabilitation unit. PAST MEDICAL HISTORY: 1. 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 2. Left foot osteomyelitis. 3. Cellulitis, left foot. 4. Three days status post left foot ray amputation. 5. Peripheral artery disease of lower extremity with left foot ulcer. 6. Acute kidney injury with chronic kidney disease, improving. 7. Hypertension. LABORATORY DATA: Most recent creatinine 1.6. PHYSICAL EXAMINATION: GENERAL: Shows mildly obese -Polish gentleman who is alert, pleasant, and conversant. HEENT: Mucous membranes are moist. NECK: Supple. ABDOMEN: Soft. LUNGS: Respirations unlabored. EXTREMITIES: Shows surgical dressing of the left foot, which is removed. Exam reveals a fresh incision of the left lateral foot, status post ray amputation of the left fifth toe. All sutures are intact. There is minimal swelling, minimal drainage. Mild edema at dorsum of the foot. No purulent drainage. Incision looks good, dressed with Xeroform, ABD, Kerlix and an Mark wrap. IMPRESSION: 1. Obesity. 2. Diabetes mellitus type 2 with ulcer of left foot. 3. Peripheral artery disease with ulcer of left foot. 4. Osteomyelitis of left foot. [facility] [address] [place] [address] CONSULTATION Name: ELIEZER ORDAZ Antwon Room #: 511-P [facility] IN [facility]#: [id number] Admission: 05/26/20 Attend Phys: Michael Bowens MD Discharge: Date of : 42 Report #: [id number] 5. Three days status post left fifth toe ray amputation, well healing. PLAN: For Xeroform and a bulky dressing. Continue IV antibiotics for history of osteomyelitis. Wound care team will follow. Keep foot elevated. <ELECTRONICALLY SIGNED> By: Aneudy Nicholson MD 05/29/20 1200 1323 1340 Aneudy Nicholson MD /nt
[2020-05-29 21:00] VITALS: BP 182/73
[2020-05-30 05:46] VITALS: BP 183/80
[2020-05-30 06:47] LABS: ALBUMIN 2.8 g/dL (3.4-5.0); CALCIUM 9.2 mg/dL (8.5-10.1); CREATININE 1.6 mg/dL (0.7-1.3); PHOSPHORUS 3.5 mg/dL (2.5-4.9); POTASSIUM 4.4 mmol/L (3.5-5.1)
[2020-05-30 08:40] LABS: HEMATOCRIT 25.8 % (42.0-52.0); HEMOGLOBIN 8.6 gm/dL (14.0-18.0)
[2020-05-30 08:53] VITALS: BP 181/94
[2020-05-30 19:17] VITALS: BP 162/85
[2020-05-31 04:20] LABS: URINE BILIRUBIN NEGATIVE (Negative); URINE BLOOD 3+ (Negative); URINE CLARITY CLEAR; URINE COLOR YELLOW; URINE GLUCOSE-RANDOM* NEGATIVE (Negative); URINE KETONES NEGATIVE (Negative); URINE LEUKOCYTES NEGATIVE (Negative); URINE NITRITE NEGATIVE (Negative); URINE PROTEIN (DIPSTICK) NEGATIVE (Negative); URINE UROBILINOGEN 0.2 E.U./dl (0.2-1.0)
[2020-05-31 04:28] LABS: BACTERIA None Seen /HPF (None Seen); CASTS None Seen /LPF (None Seen); CRYSTALS None Seen /LPF (None Seen); MUCUS 0-3 Light strn/LPF (None Seen); SQUAMOUS 0-3 Few /LPF (0-3); URINE RBC >20 Many /HPF (0-2); URINE WBC 0-5 Rare /HPF (0-5)
[2020-05-31 05:55] LABS: ALBUMIN 2.9 g/dL (3.4-5.0); CALCIUM 9.4 mg/dL (8.5-10.1); CREATININE 1.7 mg/dL (0.7-1.3); PHOSPHORUS 3.7 mg/dL (2.5-4.9); POTASSIUM 4.4 mmol/L (3.5-5.1)
[2020-05-31 08:20] VITALS: BP 170/82
[2020-05-31 19:34] VITALS: BP 155/64
[2020-06-01 07:27] VITALS: BP 161/65
[2020-06-01 20:00] VITALS: BP 180/58
[2020-06-02 06:13] LABS: HEMATOCRIT 26.4 % (42.0-52.0); HEMOGLOBIN 8.6 gm/dL (14.0-18.0); MCH 28.7 pg (26.0-34.0); MCHC 32.7 g/dL (28.0-37.0); MCV 87.8 fL (80.0-100.0); PLATELET COUNT 229 thou/uL (150-400); RBC 3.01 mil/uL (4.50-6.00); RDW 13.6 % (10.5-14.5); WBC 7.3 thou/uL (4.0-11.0)
[2020-06-02 06:15] LABS: ALBUMIN 2.9 g/dL (3.4-5.0); CALCIUM 8.7 mg/dL (8.5-10.1); CREATININE 1.8 mg/dL (0.7-1.3); PHOSPHORUS 3.9 mg/dL (2.5-4.9); POTASSIUM 4.1 mmol/L (3.5-5.1)
[2020-06-02 08:00] VITALS: BP 171/79
[2020-06-02 08:40] LABS: PLATELET ESTIMATE NORMAL
[2020-06-02 19:45] VITALS: BP 171/77
[2020-06-03 04:38] VITALS: BP 182/69
[2020-06-03 20:54] VITALS: BP 151/71
[2020-06-04 08:00] VITALS: BP 151/70
[2020-06-04 20:00] VITALS: BP 156/64
[2020-06-05 09:45] VITALS: BP 141/54
[2020-06-05 19:35] VITALS: BP 145/53
[2020-06-06 06:49] LABS: CALCIUM 8.8 mg/dL (8.5-10.1); CREATININE 2.2 mg/dL (0.7-1.3); PHOSPHORUS 3.8 mg/dL (2.5-4.9)
[2020-06-06 08:00] VITALS: BP 149/50
[2020-06-06 11:34] LABS: HEMATOCRIT 27.2 % (42.0-52.0); HEMOGLOBIN 8.8 gm/dL (14.0-18.0)
[2020-06-06 19:50] VITALS: BP 154/59
[2020-06-07 07:40] VITALS: BP 128/57
--- NOTE | 2020-06-07 09:33 | H ---
[facility] [place] [address] HISTORY AND PHYSICAL Name: ELIEZER ORDAZ Room #: 511-P ADM IN M.R.#: [id number] Admission: 05/26/20 Attend Phys: Michael Bowens MD Discharge: Date of : 42 Report #: [id number] THIS REPORT FOR: cc: Jhonathan Nelson,Michael Leon MD ~ CC: Michael Nelson DATE OF SERVICE: 05/27/2020 HISTORY AND PHYSICAL/POSTADMISSION PHYSICIAN EVALUATION HISTORY OF PRESENT ILLNESS: The patient is a 79-year-old -[place] male who was originally admitted to [facility] with worsening left foot wound, was seen by multiple neuropsychology medical consultant physicians. Workup was positive for osteomyelitis, left fifth ray. He was noted to have significant peripheral arterial disease, treated with angioplasty and atherectomy with good patency, restored on 05/23/2020. After waiting for renal function to improve. He was monitored regarding acute on chronic renal insufficiency. He ultimately required a left fifth ray amputation on 05/25/2020 and is nonweightbearing on the left lower extremity. He has been followed closely by ID wound care Orthopedics, Cardiology and the hospitalist. He has been admitted now for acute in-hospital, inpatient rehabilitation. Please see the documentation on the history and physical for prior medical history, allergies, social history, and habits. MEDICATIONS: Please see the full medication listing. REVIEW OF SYSTEMS: No current complaints of chest pain, shortness of breath or abdominal discomfort. Please see the full review of systems as documented. PHYSICAL EXAMINATION: GENERAL: Obese, pleasant 79-year-old -[place] male, appeared somewhat younger than stated age. VITAL SIGNS: As noted. NEUROLOGIC: Facies are symmetric. Follows basic 1 step commands. CHEST: Sounded clear to auscultation. CARDIOVASCULAR: Regular rate and rhythm. ABDOMEN: Obese, bowel sounds positive, nontender. GENITOURINARY AND RECTAL: Deferred. EXTREMITIES: Functional range of motion of both upper extremities, strength is grade 4-/5, car pick up driver are equal. Lower extremities, left foot is dressed. I did not undo the dressing, he can wiggle his toes slightly. The toes appear warm with perfusion, some difficulty with lower extremity range of motion due to obesity. Left lower extremity strength is probably at least a grade 4-/5, right [address] [address] HISTORY AND PHYSICAL Name: ELIEZER ORDAZ Antwon Room #: 511-P [facility] IN [facility]#: [id number] Admission: 05/26/20 Attend Phys: Michael Bowens MD Discharge: Date of : 42 Report #: [id number] lower extremity strength is probably a 4- to 3+/5. He has been max assist, coming to stand. Again, he is limited as far as nonweightbearing on that left lower extremity. Appears to have intact perfusion of both lower extremities. ASSESSMENT: 1. Left foot osteomyelitis, status post fifth ray amputation, 05/25/2020, nonweightbearing. 2. Medical complexity with generalized debilitation. 3. Peripheral arterial disease, status post angiogram, 05/23/2020. 4. Acute renal insufficiency, superimposed on chronic kidney disease. Nephrology is involved. Baseline creatinine is around 2. 5. History of diabetes mellitus with multiple complications. 6. Hypertension. 7. Hyperlipidemia. 8. Exogenous obesity. 9. Prior history of intermittent confusion. PLAN: The patient has been admitted for acute in-hospital inpatient rehabilitation. From a postadmission physician evaluation perspective, there are no relevant changes since the preadmission screening. Please see the above review of prior and current medical and functional conditions and comorbidities. Please see the patient's previous and current functional status. As far as risk of complications, the patient has multiple medical comorbidities as noted above. Initial plan of care involves the interdisciplinary acute inpatient rehabilitation program. Measurable functional goals would be for the patient to become modified independent with transfers, mobility, ADLs, so that he can hopefully return back to his prior living situation. He has a stair glide into his apartment. He premorbidly utilized a front-wheeled walker. We will need to see how he progresses as far as his therapies. Prognosis is reasonably good with estimated length of stay probably at least 10 days to 2 weeks and potentially longer depending upon how he does. Potential barriers would include his multiple medical comorbidities and decreased functional status and his limited weightbearing. We will have the multiple neuropsychology medical consultant physicians continue to follow regarding his multiple medical comorbidities. The patient meets diagnostic criteria for an acute in-hospital inpatient rehabilitation stay. He meets the medical necessity criteria and we will have the neuropsychology medical consultant physicians continue to follow. He does have the tolerance for therapies and has appropriate discharge goals back to the home setting. Please see the full history and physical documentation as noted. <ELECTRONICALLY SIGNED> By: Michael Bowens MD 06/07/20 0933 1239 1312 Michael Bowens MD /nt
--- NOTE | 2020-06-07 09:34 | PLAN ---
[facility] [place] [address] REHAB UNIT PLAN OF CARE Name: ELIEZER ORDAZ Antwon Room #: 511-P ADM IN M.R.#: [id number] Admission: 05/26/20 Attend Phys: Michael Bowens MD Discharge: Date of : 42 Report #: [id number] THIS REPORT FOR: //name// CC: Michael Nelson DATE OF SERVICE: 05/28/2020 OVERALL PLAN OF CARE The overall plan of care is based on the preadmission screen, post-admission physician evaluation and information garnered from therapy assessments. SUBJECTIVE: The patient remains afebrile. He receives medication for pain as needed for his left foot. Functionally, he has been working in therapies with transfers, sit to stand, max assist. He has been able to hop 3 feet mod assist with a front-wheeled walker. In occupational therapy, lower body dressing is max assist. Upper body dressing is supervision. Speech therapy is also involved with moderate cognitive deficits and moderate memory deficits. ASSESSMENT: 1. Left foot osteomyelitis, status post fifth ray amputation 05/25/2020, nonweightbearing of left lower extremity. 2. Medical complexity with generalized debilitation. 3. Peripheral arterial disease, status post angiogram 05/23/2020. 4. Acute renal insufficiency superimposed on chronic kidney disease. 5. Hypertension. 6. Hyperlipidemia. 7. Diabetes mellitus type 2. PLAN: 1. Estimated length of stay is probably at least 10 days to 2 weeks of inpatient interdisciplinary acute rehabilitation. 2. Medical prognosis is reasonably good. 3. Anticipated interventions includes the interdisciplinary acute inpatient rehabilitation program. 4. Anticipated functional outcomes would be for the patient to be modified independent with basic transfers and mobility issues as well as to become as independent as possible with basic ADLs. 5. Discharge destination would be back to his town house. He does have a stair lift. We will need to look at other options for assistance by family as well depending upon his progress. 6. Expected therapy by discipline includes PT, OT and speech 1 hour per day [address] [address] REHAB UNIT PLAN OF CARE Name: ELIEZER ORDAZ Room #: 511-P [facility] IN ..#: [id number] Admission: 05/26/20 Attend Phys: Michael Bowens MD Discharge: Date of : 42 Report #: [id number] each five days a week throughout the duration of the acute inpatient rehabilitation stay. <ELECTRONICALLY SIGNED> By: Michael Bowens MD 06/07/20 0934 1211 0308 Michael Bowens MD /[facility]
[2020-06-07 20:32] VITALS: BP 151/65
[2020-06-08 06:13] LABS: ALBUMIN 2.9 g/dL (3.4-5.0); CALCIUM 8.8 mg/dL (8.5-10.1); CREATININE 2.2 mg/dL (0.7-1.3); PHOSPHORUS 3.8 mg/dL (2.5-4.9); POTASSIUM 4.3 mmol/L (3.5-5.1)
[2020-06-08 08:27] VITALS: BP 153/61
[2020-06-08 19:15] VITALS: BP 163/52
[2020-06-09] MEDS ORDERED: CHLORTHALIDONE25 MG PO (08:58)
[2020-06-09] MEDS ORDERED: ALDACTONE50 MG PO (08:58)
[2020-06-09] MEDS ORDERED: COZAAR100 MG PO (08:58)
[2020-06-09] MEDS ORDERED: AMLODIPINE BESY10 MG PO (08:58)
[2020-06-09] MEDS ORDERED: AMARYL2 MG PO (08:58)
[2020-06-09] MEDS ORDERED: XALATAN2.5 ML OPHTHALMIC (09:05)
[2020-06-09 09:29] VITALS: BP 163/75
[2020-06-09 10:20] VITALS: BP 163/75
[2020-06-09] MEDS ORDERED: NORCO 7.5-3251 EACH PO (16:32)
[2020-06-09 18:51] VITALS: BP 163/75
== END 2020-06-09 18:53 | disposition home health service (06) | DRG 948 ==
PROVIDERS: Hospitalist; Nurse Practitioner; Nurse Practitioner Family; ADMIT Physical Medicine & Rehabilitation; ATTEND Physical Medicine & Rehabilitation
DX: R53.81 Other malaise (principal); M86.8X7 Other osteomyelitis, ankle and foot; N17.9 Acute kidney failure, unspecified; Z68.41 Body mass index [BMI] 40.0-44.9, adult; N18.9 Chronic kidney disease, unspecified; I12.9 Hypertensive chronic kidney disease with stage 1 through stage 4 chronic kidney disease, or unspecified chronic kidney disease; E78.5 Hyperlipidemia, unspecified; E66.09 Other obesity due to excess calories; E11.621 Type 2 diabetes mellitus with foot ulcer; E11.69 Type 2 diabetes mellitus with other specified complication; E11.51 Type 2 diabetes mellitus with diabetic peripheral angiopathy without gangrene; I25.10 Atherosclerotic heart disease of native coronary artery without angina pectoris; I25.5 Ischemic cardiomyopathy; N18.3 Chronic kidney disease, stage 3 (moderate); E11.42 Type 2 diabetes mellitus with diabetic polyneuropathy; E11.22 Type 2 diabetes mellitus with diabetic chronic kidney disease; E11.65 Type 2 diabetes mellitus with hyperglycemia; J30.2 Other seasonal allergic rhinitis; G31.84 Mild cognitive impairment of uncertain or unknown etiology; E66.01 Morbid (severe) obesity due to excess calories; R31.9 Hematuria, unspecified; Z89.432 Acquired absence of left foot; Z68.38 Body mass index [BMI] 38.0-38.9, adult; Z98.49 Cataract extraction status, unspecified eye
CPT/HCPCS: 10112; 27000

== ENCOUNTER → 2020-06-21 | Outpatient (CLI) | payer OTHER, BC ==
[~2020-06-21] MED LIST changes: +ALDACTONE50 MG PO; +AMLODIPINE BESY10 MG PO; +BAYER CHEWABLE81 MG PO; +CHLORTHALIDONE25 MG PO; +CLARITIN10 MG PO; +NITRO-DUR 0.1M0.1 M1 TRANSDERM; +NORCO 7.5-3251 EACH PO; +PLAVIX 75 MG TA75 M1 PO; +XALATAN2.5 ML OPHTHALMIC
== END ==
LOC: SJCVCIMAG 10:32
PROVIDERS: ATTEND Nuclear Medicine Nuclear Cardiology
DX: I70.203 Unspecified atherosclerosis of native arteries of extremities, bilateral legs (principal); I25.10 Atherosclerotic heart disease of native coronary artery without angina pectoris; L97.522 Non-pressure chronic ulcer of other part of left foot with fat layer exposed; E78.00 Pure hypercholesterolemia, unspecified; E11.22 Type 2 diabetes mellitus with diabetic chronic kidney disease; I12.9 Hypertensive chronic kidney disease with stage 1 through stage 4 chronic kidney disease, or unspecified chronic kidney disease; N18.3 Chronic kidney disease, stage 3 (moderate); Z79.899 Other long term (current) drug therapy; Z87.891 Personal history of nicotine dependence

== ENCOUNTER → 2020-06-22 | Outpatient (CLI) | payer OTHER, BC | LOC: HYPER 09:20 | PROVIDERS: ATTEND Emergency Medicine | DX: T87.81 Dehiscence of amputation stump (principal); E11.621 Type 2 diabetes mellitus with foot ulcer; L89.612 Pressure ulcer of right heel, stage 2; L97.411 Non-pressure chronic ulcer of right heel and midfoot limited to breakdown of skin; E11.42 Type 2 diabetes mellitus with diabetic polyneuropathy; E11.22 Type 2 diabetes mellitus with diabetic chronic kidney disease; N18.3 Chronic kidney disease, stage 3 (moderate); E78.5 Hyperlipidemia, unspecified; E66.01 Morbid (severe) obesity due to excess calories; Z68.35 Body mass index [BMI] 35.0-35.9, adult; Z79.4 Long term (current) use of insulin; Z87.891 Personal history of nicotine dependence; Y83.5 Amputation of limb(s) as the cause of abnormal reaction of the patient, or of later complication, without mention of misadventure at the time of the procedure ==

== ENCOUNTER → 2020-06-27 | Outpatient (CLI) | payer OTHER, BC ==
[~2020-06-27] VITALS: Ht 182.9 cm; Wt 120.0 kg
[2020-06-27 07:47] VITALS: BP 148/77
[2020-06-27 08:19] LABS: HEMATOCRIT 26.8 % (42.0-52.0); HEMOGLOBIN 8.7 gm/dL (14.0-18.0); MCH 28.7 pg (26.0-34.0); MCHC 32.7 g/dL (28.0-37.0); RBC 3.04 mil/uL (4.50-6.00); RDW 15.2 % (10.5-14.5); WBC 6.6 thou/uL (4.0-11.0)
[2020-06-27 08:35] LABS: CALCIUM 9.1 mg/dL (8.5-10.1); CREATININE 2.5 mg/dL (0.7-1.3); POTASSIUM 5.6 mmol/L (3.5-5.1)
== END | disposition home or self-care (01) ==
LOC: CATH 07:00
PROVIDERS: ATTEND Nuclear Medicine Nuclear Cardiology
DX: I70.213 Atherosclerosis of native arteries of extremities with intermittent claudication, bilateral legs (principal); I70.238 Atherosclerosis of native arteries of right leg with ulceration of other part of lower leg; L97.919 Non-pressure chronic ulcer of unspecified part of right lower leg with unspecified severity; I70.1 Atherosclerosis of renal artery; I12.9 Hypertensive chronic kidney disease with stage 1 through stage 4 chronic kidney disease, or unspecified chronic kidney disease; N18.9 Chronic kidney disease, unspecified; I25.10 Atherosclerotic heart disease of native coronary artery without angina pectoris; E11.9 Type 2 diabetes mellitus without complications; E78.5 Hyperlipidemia, unspecified; K21.9 Gastro-esophageal reflux disease without esophagitis; E66.09 Other obesity due to excess calories; F32.9 Major depressive disorder, single episode, unspecified; F41.9 Anxiety disorder, unspecified; M19.90 Unspecified osteoarthritis, unspecified site; Z98.890 Other specified postprocedural states; Z79.899 Other long term (current) drug therapy; Z96.653 Presence of artificial knee joint, bilateral; Z87.891 Personal history of nicotine dependence

== ENCOUNTER → 2020-07-13 | Outpatient (CLI) | payer OTHER, BC | LOC: HYPER 13:19 | PROVIDERS: ATTEND Emergency Medicine | DX: T87.81 Dehiscence of amputation stump (principal); E11.621 Type 2 diabetes mellitus with foot ulcer; L97.522 Non-pressure chronic ulcer of other part of left foot with fat layer exposed; L89.612 Pressure ulcer of right heel, stage 2; L97.411 Non-pressure chronic ulcer of right heel and midfoot limited to breakdown of skin; E11.42 Type 2 diabetes mellitus with diabetic polyneuropathy; E11.22 Type 2 diabetes mellitus with diabetic chronic kidney disease; N18.3 Chronic kidney disease, stage 3 (moderate); E78.5 Hyperlipidemia, unspecified; E66.01 Morbid (severe) obesity due to excess calories; Z79.4 Long term (current) use of insulin; Z87.891 Personal history of nicotine dependence; Z68.35 Body mass index [BMI] 35.0-35.9, adult; Y83.5 Amputation of limb(s) as the cause of abnormal reaction of the patient, or of later complication, without mention of misadventure at the time of the procedure ==

== ENCOUNTER → 2020-08-04 | Outpatient (CLI) | payer OTHER, BC | LOC: HYPER 10:10 | PROVIDERS: ATTEND Obstetrics & Gynecology | DX: T87.81 Dehiscence of amputation stump (principal); E11.621 Type 2 diabetes mellitus with foot ulcer; L89.613 Pressure ulcer of right heel, stage 3; L97.411 Non-pressure chronic ulcer of right heel and midfoot limited to breakdown of skin; L97.522 Non-pressure chronic ulcer of other part of left foot with fat layer exposed; E11.42 Type 2 diabetes mellitus with diabetic polyneuropathy; E11.22 Type 2 diabetes mellitus with diabetic chronic kidney disease; N18.3 Chronic kidney disease, stage 3 (moderate); E78.5 Hyperlipidemia, unspecified; Z87.891 Personal history of nicotine dependence; Z79.4 Long term (current) use of insulin; Y83.5 Amputation of limb(s) as the cause of abnormal reaction of the patient, or of later complication, without mention of misadventure at the time of the procedure ==

== ENCOUNTER → 2020-08-25 | Outpatient (CLI) | payer OTHER, BC | LOC: HYPER 10:29 | PROVIDERS: ATTEND Emergency Medicine | DX: T87.81 Dehiscence of amputation stump (principal); E11.621 Type 2 diabetes mellitus with foot ulcer; L89.612 Pressure ulcer of right heel, stage 2; L97.411 Non-pressure chronic ulcer of right heel and midfoot limited to breakdown of skin; L97.522 Non-pressure chronic ulcer of other part of left foot with fat layer exposed; L84 Corns and callosities; E11.42 Type 2 diabetes mellitus with diabetic polyneuropathy; E11.22 Type 2 diabetes mellitus with diabetic chronic kidney disease; N18.30 Chronic kidney disease, stage 3 unspecified; E66.01 Morbid (severe) obesity due to excess calories; E78.5 Hyperlipidemia, unspecified; I25.10 Atherosclerotic heart disease of native coronary artery without angina pectoris; Z79.4 Long term (current) use of insulin; Z87.891 Personal history of nicotine dependence; Z68.35 Body mass index [BMI] 35.0-35.9, adult; Y83.5 Amputation of limb(s) as the cause of abnormal reaction of the patient, or of later complication, without mention of misadventure at the time of the procedure ==

== ENCOUNTER → 2020-09-08 | Outpatient (CLI) | payer OTHER, BC | LOC: HYPER 10:38 | PROVIDERS: ATTEND Emergency Medicine | DX: T87.81 Dehiscence of amputation stump (principal); E11.621 Type 2 diabetes mellitus with foot ulcer; L89.612 Pressure ulcer of right heel, stage 2; L97.412 Non-pressure chronic ulcer of right heel and midfoot with fat layer exposed; L97.522 Non-pressure chronic ulcer of other part of left foot with fat layer exposed; E11.42 Type 2 diabetes mellitus with diabetic polyneuropathy; E11.22 Type 2 diabetes mellitus with diabetic chronic kidney disease; N18.30 Chronic kidney disease, stage 3 unspecified; L84 Corns and callosities; E78.5 Hyperlipidemia, unspecified; Z79.4 Long term (current) use of insulin; Z87.891 Personal history of nicotine dependence; Z79.82 Long term (current) use of aspirin; Z98.49 Cataract extraction status, unspecified eye; Y83.5 Amputation of limb(s) as the cause of abnormal reaction of the patient, or of later complication, without mention of misadventure at the time of the procedure ==

== ENCOUNTER → 2020-09-22 | Outpatient (CLI) | payer OTHER, BC | LOC: HYPER 10:29 | PROVIDERS: ATTEND Emergency Medicine | DX: T87.81 Dehiscence of amputation stump (principal); E11.621 Type 2 diabetes mellitus with foot ulcer; L89.613 Pressure ulcer of right heel, stage 3; L97.422 Non-pressure chronic ulcer of left heel and midfoot with fat layer exposed; L97.522 Non-pressure chronic ulcer of other part of left foot with fat layer exposed; L84 Corns and callosities; E11.42 Type 2 diabetes mellitus with diabetic polyneuropathy; E11.22 Type 2 diabetes mellitus with diabetic chronic kidney disease; N18.30 Chronic kidney disease, stage 3 unspecified; E66.01 Morbid (severe) obesity due to excess calories; E78.5 Hyperlipidemia, unspecified; Z79.4 Long term (current) use of insulin; Z87.891 Personal history of nicotine dependence; Z68.35 Body mass index [BMI] 35.0-35.9, adult; Y83.5 Amputation of limb(s) as the cause of abnormal reaction of the patient, or of later complication, without mention of misadventure at the time of the procedure ==

== ENCOUNTER → 2020-10-06 | Outpatient (CLI) | payer OTHER, BC | LOC: HYPER 10:33 | PROVIDERS: ATTEND Emergency Medicine | DX: T87.81 Dehiscence of amputation stump (principal); E11.621 Type 2 diabetes mellitus with foot ulcer; L97.522 Non-pressure chronic ulcer of other part of left foot with fat layer exposed; L89.612 Pressure ulcer of right heel, stage 2; L97.411 Non-pressure chronic ulcer of right heel and midfoot limited to breakdown of skin; E11.42 Type 2 diabetes mellitus with diabetic polyneuropathy; L84 Corns and callosities; E11.22 Type 2 diabetes mellitus with diabetic chronic kidney disease; N18.30 Chronic kidney disease, stage 3 unspecified; E78.5 Hyperlipidemia, unspecified; Z87.891 Personal history of nicotine dependence; Z79.4 Long term (current) use of insulin; Z79.82 Long term (current) use of aspirin; Z98.49 Cataract extraction status, unspecified eye; Y83.5 Amputation of limb(s) as the cause of abnormal reaction of the patient, or of later complication, without mention of misadventure at the time of the procedure ==

== ENCOUNTER → 2020-10-25 | Outpatient (CLI) | payer OTHER, BC | LOC: HYPER 10:37 | PROVIDERS: ATTEND Emergency Medicine | DX: T87.81 Dehiscence of amputation stump (principal); E11.621 Type 2 diabetes mellitus with foot ulcer; L97.522 Non-pressure chronic ulcer of other part of left foot with fat layer exposed; L89.612 Pressure ulcer of right heel, stage 2; L97.411 Non-pressure chronic ulcer of right heel and midfoot limited to breakdown of skin; L84 Corns and callosities; E11.42 Type 2 diabetes mellitus with diabetic polyneuropathy; E11.22 Type 2 diabetes mellitus with diabetic chronic kidney disease; N18.30 Chronic kidney disease, stage 3 unspecified; E78.5 Hyperlipidemia, unspecified; E66.01 Morbid (severe) obesity due to excess calories; Z87.891 Personal history of nicotine dependence; Z79.4 Long term (current) use of insulin; Z98.49 Cataract extraction status, unspecified eye; Z68.35 Body mass index [BMI] 35.0-35.9, adult; Y83.5 Amputation of limb(s) as the cause of abnormal reaction of the patient, or of later complication, without mention of misadventure at the time of the procedure ==

== ENCOUNTER → 2020-11-08 | Outpatient (CLI) | payer OTHER, BC | LOC: HYPER 10:24 | PROVIDERS: ATTEND Emergency Medicine | DX: T87.81 Dehiscence of amputation stump (principal); E11.621 Type 2 diabetes mellitus with foot ulcer; L97.522 Non-pressure chronic ulcer of other part of left foot with fat layer exposed; L89.613 Pressure ulcer of right heel, stage 3; L97.411 Non-pressure chronic ulcer of right heel and midfoot limited to breakdown of skin; E11.42 Type 2 diabetes mellitus with diabetic polyneuropathy; E11.22 Type 2 diabetes mellitus with diabetic chronic kidney disease; N18.30 Chronic kidney disease, stage 3 unspecified; L84 Corns and callosities; E66.9 Obesity, unspecified; E78.5 Hyperlipidemia, unspecified; Z68.35 Body mass index [BMI] 35.0-35.9, adult; Z87.891 Personal history of nicotine dependence; Z79.4 Long term (current) use of insulin; Z79.82 Long term (current) use of aspirin; Z98.49 Cataract extraction status, unspecified eye; Y83.5 Amputation of limb(s) as the cause of abnormal reaction of the patient, or of later complication, without mention of misadventure at the time of the procedure ==

== ENCOUNTER → 2020-12-01 | Outpatient (CLI) | payer OTHER, BC | LOC: HYPER 10:29 | PROVIDERS: ATTEND Emergency Medicine | DX: T87.81 Dehiscence of amputation stump (principal); E11.621 Type 2 diabetes mellitus with foot ulcer; L97.522 Non-pressure chronic ulcer of other part of left foot with fat layer exposed; L89.613 Pressure ulcer of right heel, stage 3; L97.411 Non-pressure chronic ulcer of right heel and midfoot limited to breakdown of skin; E11.42 Type 2 diabetes mellitus with diabetic polyneuropathy; E11.22 Type 2 diabetes mellitus with diabetic chronic kidney disease; N18.30 Chronic kidney disease, stage 3 unspecified; L84 Corns and callosities; I25.10 Atherosclerotic heart disease of native coronary artery without angina pectoris; E78.5 Hyperlipidemia, unspecified; Z79.4 Long term (current) use of insulin; Z98.49 Cataract extraction status, unspecified eye; Z87.891 Personal history of nicotine dependence; Z79.82 Long term (current) use of aspirin; Y83.5 Amputation of limb(s) as the cause of abnormal reaction of the patient, or of later complication, without mention of misadventure at the time of the procedure ==

== ENCOUNTER → 2021-02-02 | Outpatient (CLI) | payer OTHER, BC | LOC: HYPER 10:58 | PROVIDERS: ATTEND Emergency Medicine | DX: T87.81 Dehiscence of amputation stump (principal); E11.621 Type 2 diabetes mellitus with foot ulcer; L89.613 Pressure ulcer of right heel, stage 3; L97.411 Non-pressure chronic ulcer of right heel and midfoot limited to breakdown of skin; L97.522 Non-pressure chronic ulcer of other part of left foot with fat layer exposed; L84 Corns and callosities; E11.42 Type 2 diabetes mellitus with diabetic polyneuropathy; E11.22 Type 2 diabetes mellitus with diabetic chronic kidney disease; N18.30 Chronic kidney disease, stage 3 unspecified; E78.5 Hyperlipidemia, unspecified; E66.01 Morbid (severe) obesity due to excess calories; I25.10 Atherosclerotic heart disease of native coronary artery without angina pectoris; Z79.4 Long term (current) use of insulin; Z98.49 Cataract extraction status, unspecified eye; Z87.891 Personal history of nicotine dependence; Z79.82 Long term (current) use of aspirin; Z68.35 Body mass index [BMI] 35.0-35.9, adult; Y83.5 Amputation of limb(s) as the cause of abnormal reaction of the patient, or of later complication, without mention of misadventure at the time of the procedure ==

== ENCOUNTER → 2021-02-08 | Outpatient (CLI) | payer OTHER, BC | LOC: HYPER 10:28 | PROVIDERS: ATTEND Emergency Medicine | DX: T87.81 Dehiscence of amputation stump (principal); E11.621 Type 2 diabetes mellitus with foot ulcer; L97.522 Non-pressure chronic ulcer of other part of left foot with fat layer exposed; L89.613 Pressure ulcer of right heel, stage 3; L97.411 Non-pressure chronic ulcer of right heel and midfoot limited to breakdown of skin; E11.42 Type 2 diabetes mellitus with diabetic polyneuropathy; E11.22 Type 2 diabetes mellitus with diabetic chronic kidney disease; N18.30 Chronic kidney disease, stage 3 unspecified; L84 Corns and callosities; I25.10 Atherosclerotic heart disease of native coronary artery without angina pectoris; E78.5 Hyperlipidemia, unspecified; E66.9 Obesity, unspecified; Z68.35 Body mass index [BMI] 35.0-35.9, adult; Z79.4 Long term (current) use of insulin; Z98.49 Cataract extraction status, unspecified eye; Z87.891 Personal history of nicotine dependence; Z79.82 Long term (current) use of aspirin; Z79.899 Other long term (current) drug therapy; Y83.5 Amputation of limb(s) as the cause of abnormal reaction of the patient, or of later complication, without mention of misadventure at the time of the procedure ==

== ENCOUNTER → 2021-02-22 | Outpatient (CLI) | payer OTHER, BC | LOC: HYPER 10:34 | PROVIDERS: ATTEND Emergency Medicine | DX: T87.81 Dehiscence of amputation stump (principal); E11.621 Type 2 diabetes mellitus with foot ulcer; L97.522 Non-pressure chronic ulcer of other part of left foot with fat layer exposed; L89.613 Pressure ulcer of right heel, stage 3; L97.411 Non-pressure chronic ulcer of right heel and midfoot limited to breakdown of skin; E11.42 Type 2 diabetes mellitus with diabetic polyneuropathy; E11.22 Type 2 diabetes mellitus with diabetic chronic kidney disease; N18.30 Chronic kidney disease, stage 3 unspecified; L84 Corns and callosities; E78.5 Hyperlipidemia, unspecified; I25.10 Atherosclerotic heart disease of native coronary artery without angina pectoris; E66.01 Morbid (severe) obesity due to excess calories; Z68.35 Body mass index [BMI] 35.0-35.9, adult; Z79.4 Long term (current) use of insulin; Z87.891 Personal history of nicotine dependence; Y83.5 Amputation of limb(s) as the cause of abnormal reaction of the patient, or of later complication, without mention of misadventure at the time of the procedure ==

== ENCOUNTER → 2021-03-15 | Outpatient (CLI) | payer OTHER, BC | LOC: HYPER 09:38 | PROVIDERS: ATTEND Emergency Medicine | DX: T87.81 Dehiscence of amputation stump (principal); E11.621 Type 2 diabetes mellitus with foot ulcer; L97.522 Non-pressure chronic ulcer of other part of left foot with fat layer exposed; L89.613 Pressure ulcer of right heel, stage 3; L97.411 Non-pressure chronic ulcer of right heel and midfoot limited to breakdown of skin; L89.893 Pressure ulcer of other site, stage 3; L97.511 Non-pressure chronic ulcer of other part of right foot limited to breakdown of skin; E11.42 Type 2 diabetes mellitus with diabetic polyneuropathy; E11.22 Type 2 diabetes mellitus with diabetic chronic kidney disease; N18.30 Chronic kidney disease, stage 3 unspecified; L84 Corns and callosities; E78.5 Hyperlipidemia, unspecified; I25.10 Atherosclerotic heart disease of native coronary artery without angina pectoris; E66.01 Morbid (severe) obesity due to excess calories; Z68.35 Body mass index [BMI] 35.0-35.9, adult; Z79.4 Long term (current) use of insulin; Z87.891 Personal history of nicotine dependence; Y83.5 Amputation of limb(s) as the cause of abnormal reaction of the patient, or of later complication, without mention of misadventure at the time of the procedure ==

== ENCOUNTER → 2021-04-05 | Outpatient (CLI) | payer OTHER, BC | LOC: HYPER 08:12 | PROVIDERS: ATTEND Emergency Medicine | DX: T87.81 Dehiscence of amputation stump (principal); E11.621 Type 2 diabetes mellitus with foot ulcer; L97.522 Non-pressure chronic ulcer of other part of left foot with fat layer exposed; L89.613 Pressure ulcer of right heel, stage 3; L97.411 Non-pressure chronic ulcer of right heel and midfoot limited to breakdown of skin; L89.893 Pressure ulcer of other site, stage 3; L97.511 Non-pressure chronic ulcer of other part of right foot limited to breakdown of skin; E11.42 Type 2 diabetes mellitus with diabetic polyneuropathy; E11.22 Type 2 diabetes mellitus with diabetic chronic kidney disease; N18.30 Chronic kidney disease, stage 3 unspecified; L84 Corns and callosities; E78.5 Hyperlipidemia, unspecified; I25.10 Atherosclerotic heart disease of native coronary artery without angina pectoris; E66.01 Morbid (severe) obesity due to excess calories; Z68.35 Body mass index [BMI] 35.0-35.9, adult; Z79.4 Long term (current) use of insulin; Z87.891 Personal history of nicotine dependence; Y83.5 Amputation of limb(s) as the cause of abnormal reaction of the patient, or of later complication, without mention of misadventure at the time of the procedure ==

== ENCOUNTER → 2021-04-27 | Outpatient (CLI) | payer OTHER, BC | LOC: HYPER 07:44 | PROVIDERS: ATTEND Emergency Medicine | DX: T87.81 Dehiscence of amputation stump (principal); E11.621 Type 2 diabetes mellitus with foot ulcer; L89.893 Pressure ulcer of other site, stage 3; L97.522 Non-pressure chronic ulcer of other part of left foot with fat layer exposed; E11.42 Type 2 diabetes mellitus with diabetic polyneuropathy; I25.10 Atherosclerotic heart disease of native coronary artery without angina pectoris; L84 Corns and callosities; E11.22 Type 2 diabetes mellitus with diabetic chronic kidney disease; N18.30 Chronic kidney disease, stage 3 unspecified; E66.9 Obesity, unspecified; E78.5 Hyperlipidemia, unspecified; Z79.4 Long term (current) use of insulin; Z98.49 Cataract extraction status, unspecified eye; Z87.891 Personal history of nicotine dependence; Z79.82 Long term (current) use of aspirin; Z79.899 Other long term (current) drug therapy; Y83.5 Amputation of limb(s) as the cause of abnormal reaction of the patient, or of later complication, without mention of misadventure at the time of the procedure ==

== ENCOUNTER → 2021-05-19 | Outpatient (CLI) | payer OTHER, BC | LOC: HYPER 07:51 | PROVIDERS: ATTEND Emergency Medicine | DX: E11.621 Type 2 diabetes mellitus with foot ulcer (principal); L89.893 Pressure ulcer of other site, stage 3; L97.522 Non-pressure chronic ulcer of other part of left foot with fat layer exposed; E11.42 Type 2 diabetes mellitus with diabetic polyneuropathy; E11.22 Type 2 diabetes mellitus with diabetic chronic kidney disease; N18.30 Chronic kidney disease, stage 3 unspecified; E78.5 Hyperlipidemia, unspecified; Z87.891 Personal history of nicotine dependence; Z79.4 Long term (current) use of insulin; Z79.82 Long term (current) use of aspirin; Z79.899 Other long term (current) drug therapy; Z89.422 Acquired absence of other left toe(s) ==

== ENCOUNTER → 2021-07-19 | Outpatient (CLI) | payer OTHER, BC | LOC: ULTRA 09:30 | PROVIDERS: ATTEND Neuromusculoskeletal Medicine & OMM | DX: N28.1 Cyst of kidney, acquired (principal); N20.0 Calculus of kidney; R79.89 Other specified abnormal findings of blood chemistry ==

== ENCOUNTER → 2021-09-27 | Outpatient (CLI) | payer OTHER, BC | LOC: SJCVC 14:29 | PROVIDERS: ATTEND Internal Medicine | DX: R94.31 Abnormal electrocardiogram [ECG] [EKG] (principal); R00.0 Tachycardia, unspecified; I44.0 Atrioventricular block, first degree; I25.10 Atherosclerotic heart disease of native coronary artery without angina pectoris; I25.5 Ischemic cardiomyopathy; I65.23 Occlusion and stenosis of bilateral carotid arteries; E11.42 Type 2 diabetes mellitus with diabetic polyneuropathy; E11.22 Type 2 diabetes mellitus with diabetic chronic kidney disease; I12.9 Hypertensive chronic kidney disease with stage 1 through stage 4 chronic kidney disease, or unspecified chronic kidney disease; N18.32 Chronic kidney disease, stage 3b; I73.9 Peripheral vascular disease, unspecified; E78.5 Hyperlipidemia, unspecified; Z87.891 Personal history of nicotine dependence; Z79.82 Long term (current) use of aspirin; Z79.899 Other long term (current) drug therapy ==